=== PATIENT | female | born 1950 ===

== ENCOUNTER → 2016-11-25 | Outpatient (CLI) | payer MEDICARE ==
[~2016-11-25] MED LIST: ASPIRIN325 MG PO; CALCIUM + VITA1 EACH PO; FOSAMAX70 MG PO; LOPRESSOR12.5 MG/0. PO; MULTI VITAMIN1 EACH PO; NITROSTAT0.4 MG SL; PLAVIX75 MG PO; PRINIVIL20 MG PO; TYLENOL325 MG PO; VITAMIN D2000 UNIT PO; ZOCOR20 M1 PO
== END ==
LOC: LFPA 08:52
DX: Z11.59 Encounter for screening for other viral diseases (principal); Z12.4 Encounter for screening for malignant neoplasm of cervix
CPT/HCPCS: G0145